=== PATIENT | female | born 1975 | race Two or more races ===

== ENCOUNTER 2025-01-16 12:35 | Emergency (ER) | payer OTHER ==
[~2025-01-16] VITALS: Ht 157.5 cm; Wt 78.0 kg
== END 2025-01-16 16:06 | disposition home or self-care (01) ==
LOC: ER 12:35
DX: J03.90 Acute tonsillitis, unspecified (principal); H92.02 Otalgia, left ear; H57.9 Unspecified disorder of eye and adnexa